=== PATIENT | female | born 1995 | race Two or more races ===

== ENCOUNTER 2019-10-27 14:55 | Emergency (ER) | payer SELFPAY ==
[2019-10-27] MEDS ORDERED: Lidocaine 2% VISCOUS* 15 ML UDC PO ONE (15:11)
[2019-10-27] MEDS ORDERED: Acetaminophen TAB* 325 MG PO ONE (15:11)
--- NOTE | 2019-10-27 15:18 | ED ---
Respiratory - HPI Summary HPI Summary: 24 y/o female presented to [facility] after 5 days of trouble breathing. Pt began having diarrhea and fever 2 days ago. Today pt began having a feeling of something stuck in her throat as if she needs to cough, as well as sore throat. Pt denies vomiting, abd pain, and CP. Pt has had no contacts with anyone sick or recent travel outside the [place]. 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 Medications reviewed. Allergies noted. - History of Current Complaint Stated Complaint: FLU LIKE SYMPTOMS Time Seen by Provider: 10/27/19 14:58 Hx Obtained From: Patient Onset/Duration: Lasting Days, Still Present Character: Cough (Productive) - need to cough something out Aggravating Factor(s): Nothing Alleviating Factor(s): Nothing Associated Signs and Symptoms: Fever, Dyspnea - Allergy/Home Medications Allergies/Adverse Reactions: Allergies Allergy/AdvReac Type Severity Reaction Status Date / Time No Known Allergies Allergy Verified 10/27/19 15:18 Home Medications: Home Medications Vitamin D TAB* 10/27/19 [History] PMH/Surg Hx/FS Hx/Imm Hx Sensory History: Denies: Hx Legally Blind, Hx Deafness Opthamlomology History: Denies: Hx Legally Blind EENT History: Denies: Hx Deafness Infectious Disease History: Denies: Traveled Outside the [place] in Last 30 Days - Family History Known Family History: Negative: Hypertension - Social History Occupation: Student Alcohol Use: Occasionally Substance Use Type: Denies: None Review of Systems Positive: Fever Positive: Sore Throat Negative: Chest Pain Positive: Other - dyspnea, need to cough as if something in throat Positive: Diarrhea. Negative: Abdominal Pain, Vomiting All Other Systems Reviewed And Are Negative: Yes Physical Exam - Summary Physical Exam Summary: Constitutional: Well-developed, Well-nourished, Alert. (-) Distressed Skin: Warm, Dry HENT: Normocephalic; Atraumatic; No pain with tracheal manipulation; Uvula midline with no peritonsillar swelling Eyes: Conjunctiva normal Neck: Musculoskeletal ROM normal neck. (-) JVD, (-) Stridor, (-) Tracheal deviation Cardio: Rhythm regular, HR 95-110 in room, Heart sounds normal; Intact distal pulses; Radial pulses are 2+ and symmetric. (-) Murmur Pulmonary/Chest wall: Effort normal. (-) Respiratory distress, (-) Wheezes, (-) Rales Abd: Soft, (-) tenderness, (-) Distension, (-) Guarding, (-) Rebound Musculoskeletal: (-) Edema Lymph: (+) Anterior Cervical adenopathy Neuro: Alert, Oriented x3 Psych: Mood and affect Normal Triage Information Reviewed: Yes Vital Signs Reviewed: Yes Procedures - Sedation Patient Received Moderate/Deep Sedation with Procedure: No Diagnostics - Laboratory Lab Statement: Any lab studies that have been ordered have been reviewed, and results considered in the medical decision making process. - Radiology cxr Radiology Interpretation Completed By: Radiologist Summary of Radiographic Findings: IMPRESSION: No acute cardiopulmonary process by radiograph. This report was reviewed by the ED physician. Re-Evaluation - Re-Evaluation First Eval Re-Evaluation Time: 16:25 Comment: Pt was briefed about COVID-19 testing and need to quarantine self with recommendations to be given in discharge. Disposition - Course Course Of Treatment: Patient is here with shortness of breath and sore throat. Patient's overall well-appearing onside of portal and tachycardia upon arrival which resolved by the time of discharge. Patient has no evidence of deep suspect infection on exam. Patient had a negative rapid strep and influenza swab. Patient had a negative chest x-ray. Patient was tested for Covid 19 and given quarantine instructions. - Diagnoses Provider Diagnoses: Sore throat, Fever, Cough Discharge ED - Sign-Out/Discharge Documenting (check all that apply): Patient Departure - dc - Discharge Plan Condition: Stable Disposition: HOME Forms: COVID-19 Tested & Isolation Referrals: [facility] - MRAdrian [Primary Care Provider] - Additional Instructions: You were seen in the emergency department for coronavirus rule out. The department of health will contact you within 24 hours. Due to the pandemic, you should stay in your house and self quarantine. See the separate quarantine paper for further instructions. You should wear a mask if you're outside of your personal room. We encourage handwashing as well as limited contact with other people including the elderly and the immunocompromised. If any studies were not completed at the time of discharge you will be called with the relevant results. Return to emergency department for severe trouble breathing, worsening or concerning symptoms It was a pleasure taking care of you today. - Billing Disposition and Condition Condition: STABLE Disposition: Home - Attestation Statements Document Initiated by Scribe: Yes Documenting Scribe: Noman Espana Provider For Whom Scribe is Documenting (Include Credential): Ayad Drake Scribe Attestation: Noman Rockwell, scribed for Ayad Drake on 10/27/19 at 1909. Scribe Documentation Reviewed: Yes Provider Attestation: The documentation as recorded by the Noman heard accurately reflects the service I personally performed and the decisions made by Ayad stevens Status of Scribe Document: Viewed
[2019-10-27 15:31] LABS: Rapid Strep Molecular Negative (Negative)
[2019-10-27 15:37] LABS: Influenza A Molecular Negative (Negative); Influenza B Molecular Negative (Negative)
[2019-10-27 16:45] VITALS: BP 120/85
== END 2019-10-27 16:44 | disposition home or self-care (01) ==
LOC: ED 14:55
DX: J02.9 Acute pharyngitis, unspecified (principal)
CPT/HCPCS: 71045; 87651; 99283; A9270-GY; U0002

== ENCOUNTER 2019-10-29 15:50 | Emergency (ER) | payer OTHER ==
--- NOTE | 2019-10-29 16:02 | ED ---
Respiratory - HPI Summary HPI Summary: 24 y/o F brought in by EMS c/o worsening shortness of breath. Patient reports SOB, throat tightness for 3 days. SOB worse w exertion. Patient seen here 10/26 for difficulty in breathing, diarrhea, fever. Had CXR, lab work, flu and strep tests done which were normal. She was tested for COVID19 and d/c home with results still pending. No difficulty eating or swallowing. Very anxious about what is going on. - History of Current Complaint Stated Complaint: SOB PER EMS Time Seen by Provider: 10/29/19 15:54 Hx Obtained From: Patient Onset/Duration: Lasting Days - 3, Still Present Current Severity: None Aggravating Factor(s): Exertion Alleviating Factor(s): Nothing - Allergy/Home Medications Allergies/Adverse Reactions: Allergies Allergy/AdvReac Type Severity Reaction Status Date / Time No Known Allergies Allergy Verified 10/27/19 15:18 Home Medications: Home Medications Cholecalciferol TAB* [Vitamin D TAB*] 1,000 unit PO DAILY 10/27/19 [History Confirmed 10/29/19] PMH/Surg Hx/FS Hx/Imm Hx Sensory History: Denies: Hx Legally Blind, Hx Deafness Opthamlomology History: Denies: Hx Legally Blind - Family History Known Family History: Negative: Hypertension - Social History Alcohol Use: Occasionally Smoking Status (MU): Never Smoked Tobacco Review of Systems Positive: Other - throat tightness Positive: Shortness Of Breath All Other Systems Reviewed And Are Negative: Yes Physical Exam - Summary Physical Exam Summary: onstitutional: Well-developed, Well-nourished, tearful Skin: Warm, Dry HENT: Normocephalic; Atraumatic Eyes: Conjunctiva normal Neck: Musculoskeletal ROM normal neck. (-) JVD, (-) Stridor, (-) Nuchal rigidity Cardio: Rhythm regular, rate normal, Heart sounds normal; Intact distal pulses; Radial pulses are 2+ and symmetric. (-) Murmur Pulmonary/Chest wall: Effort normal. (-) Respiratory distress, (-) Wheezes, (-) Rales Abd: Soft, (-) tenderness, (-) Distension, (-) Guarding, (-) Rebound Musculoskeletal: (-) Edema Lymph: (-) Cervical adenopathy Neuro: Alert, Oriented x3 Psych: Anxious Triage Information Reviewed: Yes Vital Signs Reviewed: Yes Procedures - Sedation Patient Received Moderate/Deep Sedation with Procedure: No Disposition - Course Course Of Treatment: 24 y/o F p/w SOB and sensation of throat tightness. VSS, anxious but well appearing. Easy WOB on RA, lungs CTAB. 100% pulse ox. Will check soft tissue neck, otherwise can follow up outpatient. To remain on quarantine until COVID results. - Diagnoses Provider Diagnoses: Shortness of breath Discharge ED - Sign-Out/Discharge Documenting (check all that apply): Patient Departure - Discharge Plan Condition: Stable Disposition: HOME Patient Education Materials: Shortness of Breath (ED) Referrals: [facility] - Adrian BRYANT [Z.Unsocial, APPLICATION, OTHER] - Additional Instructions: You were seen in the emergency department for shortness of breath. Your COVID test is pending. Please follow up with your primary care doctor in next 2-3 days and return to emergency department for worsening or concerning symptoms. It was a pleasure taking care of you today. - Billing Disposition and Condition Condition: STABLE Disposition: Home - Attestation Statements Document Initiated by Dominicibe: Yes Documenting Scribe: Jessica Wasserman Provider For Whom Chi is Documenting (Include Credential): Geoffrey Gardiner MD Scribe Attestation: I, Jessica Wasserman, scribed for Geoffrey Gardiner MD on 10/29/19 at 1810. Scribe Documentation Reviewed: Yes Provider Attestation: The documentation as recorded by the scribeJessica accurately reflects the service I personally performed and the decisions made by me, Geoffrey Gardiner MD Status of Scribe Document: Viewed
[2019-10-29 18:33] VITALS: BP 106/69
== END 2019-10-29 18:32 | disposition home or self-care (01) ==
LOC: ED 15:50
DX: R06.02 Shortness of breath (principal)
CPT/HCPCS: 70360; 99283